=== PATIENT | female | born 1935 | race Caucasian/White ===

== ENCOUNTER → 2017-04-10 10:47 | Outpatient (CLI) | payer MEDICARE, OTHER, SELFPAY ==
[2017-04-10 11:05] LABS: Basophils # 0.1 K/mm3 (0-0.2); Basophils % 0.7 % (0.1-2.0); Eosinophils # 0.2 K/mm3 (0.0-0.4); Eosinophils % 1.1 % (0.1-12.0); Hematocrit 37.9 % (37.0-47.0); Hemoglobin 11.9 g/dL (12.2-16.2); Lymphocytes # 13.1 K/mm3 (0.7-4.5); Lymphocytes % 68.9 K/mm3 (10-50); Mean Corpuscular HGB Conc 31.4 g/dL (31.8-35.4); Mean Corpuscular Hemoglobin 29.5 pg (27.0-31.2); Mean Corpuscular Volume 94.1 fl (81-99); Mean Platelet Volume 8.8 fl (7.4-10.4); Monocytes # 0.4 K/mm3 (0.1-1.0); Monocytes % 2.1 % (1.7-9.3); Neutrophils # 5.2 K/mm3 (1.8-7.8); Neutrophils % 27.2 % (37.0-80.0); Platelet Count 232 K/mm3 (142-424); Red Blood Count 4.02 M/mm3 (4.20-5.40); Red Cell Distribution Width 14.8 % (11.5-17.5); White Blood Count 19.1 K/mm3 (4.8-10.8)
[2017-04-10 11:08] LABS: MANUAL DIFFERENTIAL MANUAL DIFFERENTIAL (MANUAL DIFF)
[2017-04-10 11:28] LABS: Alanine Aminotransferase 20 U/L (12-78); Albumin Level 3.9 gm/dL (3.4-5.0); Albumin/Globulin Ratio 1.2 (1.1-1.8); Alkaline Phosphatase 75 U/L (46-116); Anion Gap 13.8 mEq/L (5-15); Aspartate Amino Transferase 13 U/L (15-37); Bilirubin,Total 0.5 mg/dL (0.2-1.0); Blood Urea Nitrogen 37 mg/dL (7-18); Calcium 9.9 mg/dL (8.5-10.1); Carbon Dioxide 30 mmol/L (21.0-32.0); Chloride 103 mmol/L (98-107); Chol/HDL Ratio 2.4 (1-3.5); Cholesterol 212 mg/dL (140-200); Estimated Glomerular Filt Rate 7 ml/min (>60); GFR (African American) 8 ML/MIN (>60); Globulin 3.3 gm/dl (1.3-3.2); Glucose 102 mg/dL (74-106); HDL Cholesterol 89 mg/dL (29-89); LDL Cholesterol 101 mg/dL (0-130); Potassium 4.8 mmoL/L (3.5-5.1); Sodium 142 mmol/L (136-145); Thyroid Stimulating Hormone 2.37 uIU/ml (0.358-3.740); Total Protein,Serum 7.2 gm/dL (6.4-8.2); Triglycerides 108 mg/dL (30-200); VLDL Cholesterol 22 mg/dL (0-40)
[2017-04-10 12:17] LABS: Lymphocytes % 66 % (10-50); Monocytes % 3 % (2-9); Neutrophils % 31 % (42-76); Platelet Estimate Normal; Total Cells Counted 100
[2017-04-10 12:18] LABS: RBC Morphology Normal
== END ==
PROVIDERS: PCP Internal Medicine; Visit Provider Internal Medicine
DX: I10 Essential (primary) hypertension (principal); C91.10 Chronic lymphocytic leukemia of B-cell type not having achieved remission; E03.9 Hypothyroidism, unspecified; N18.6 End stage renal disease; Z99.2 Dependence on renal dialysis
CPT/HCPCS: 36415; 80053; 80061; 84443; 85007; 85025

== ENCOUNTER → 2017-05-22 07:33 | Outpatient (CLI) | payer MEDICARE, OTHER, SELFPAY ==
--- NOTE | 2017-05-22 07:39 | CT_ITS ---
CT abdomen pelvis wo con CLINICAL INDICATION: Left lower quadrant pain, history of diverticulitis ITS.REASON: LLQ PAIN ORDERING PHYSICIAN: Galen Stewart PATIENT AGE: 82 years COMPARISON: 08/10/2014 TECHNIQUE: Axial images obtained with sagittal and coronal reformats. PROCEDURE: Oral Contrast: None IV Contrast: None . FINDINGS: Lung base images show cardiomegaly with dense calcification of the mitral valve annulus. Fibrotic changes are present in the lung bases and there is ectasia of the lower thoracic aorta measuring up to 2.5 cm with dense calcification of the aorta. There has been a prior cholecystectomy. No ductal dilatation. The liver and spleen are unremarkable. No adrenal mass. No pancreatic mass apparent. There is a moderate amount retained colonic feces. There are multiple unopacified bowel loops present within the abdomen/pelvis which could obscure or mimic pathology. If symptoms persists, consider repeating exam with IV and oral contrast administration. There is been diverticulosis. No convincing evidence of diverticulitis. No evidence of appendicitis. Anastomosis is present in the colon in the left upper quadrant. A 12 mm isodensity is present in the upper pole the right kidney medially. Prominent extrarenal right renal pelvis. Bilateral renal cysts are present. No hydronephrosis. Prior hysterectomy. No obvious pelvic mass or abnormal fluid collection. No acute bony anomalies. IMPRESSION: 1. Overall no significant change with no acute finding. 2. Constipation with colonic diverticulosis and postsurgical changes. 3. There are multiple unopacified bowel loops present within the abdomen/pelvis which could obscure or mimic pathology. If symptoms persists, consider repeating exam with IV and oral contrast administration 4. Other nonacute findings as described above
== END ==
PROVIDERS: Family Provider Internal Medicine; PCP Internal Medicine; Visit Provider Internal Medicine
DX: R10.32 Left lower quadrant pain (principal)
CPT/HCPCS: 74176

== ENCOUNTER → 2017-06-14 14:05 | Outpatient (CLI) | payer MEDICARE, OTHER, SELFPAY ==
[2017-06-14 14:36] LABS: Troponin I < 0.02 ng/ml (0.00-0.06)
== END ==
PROVIDERS: Visit Provider Internal Medicine
DX: R06.00 Dyspnea, unspecified (principal); I12.0 Hypertensive chronic kidney disease with stage 5 chronic kidney disease or end stage renal disease
CPT/HCPCS: 36415; 84484; 93005

== ENCOUNTER → 2018-05-19 08:08 | Outpatient (CLI) | payer MEDICARE, OTHER, SELFPAY ==
--- NOTE | 2018-05-19 | CA_ITS ---
PROCEDURE: 2-D M-mode and color Doppler study INDICATIONS FOR THE TEST: Chest pain COPD Heart Murmur+ Tobacco Smoking Palpitations Fatigue Syncope Edema Hypertension+Diabetes Mellitus Rheumatic Fever SOB+F[place] Obesity Hyperlipidemia Family History HD Additional History CHF, A FLUTTER, ? + B/S PATIENT INFORMATION HEIGHT: 59 WEIGHT:100 GENDER: Female B/P:167/44 2-D/M-MODE INTERPRETATION: 2-D MEASUREMENTS OBSERVED VALUES IN CMS Right Ventricular Dimension (RVDd) 1.1 Interventricular Septum (Thickness)(IVsd) 1.4 Left Ventricular Internal Dimensions(LVIDd) 5.6 Left Ventricular Posterior Wall (Thickness)(LVPWd) 1.1 Aortic Root 2.1 Aortic Cusp Separation 1.1 Left Atrial Dimensions (LAD) 4.5 2D 1. Left atrium is markedly enlarged, left ventricle is normal size, moderate concentric left ventricular hypertrophy, visually estimated ejection fraction of 55-60% with no regional wall motion abnormality. 2. The right atrium and right ventricle are moderately enlarged with normal contractility. 3. The aortic valve is thickened and calcified without significant restriction the leaflet mobility. 4. The mitral valve has dense mitral calcification which extends and both anterior and posterior mitral leaflet. 5. The tricuspid valve leaflets are minimally thickened and 6. The pulmonic valve is poorly visualized. 5. No significant pericardial effusion noted. DOPPLER INTERROGATION: 1. The aortic outflow velocities mildly increased, does not represent significant aortic stenosis, there is mild aortic insufficiency. 2. The mitral inflow velocities increased to 2.4 m/s, resulting in a mean gradient across valve of 7 mmHg, calculated valve area by pressure half time is 1.7 sq cm, represents mild mitral stenosis, there is moderate to severe mitral regurgitation present. 3. There is moderate tricuspid regurgitation present, calculated right ventricular systolic pressure is 70 mmHg consistent with severe pulmonary hypertension. Diastolic parameters are inconclusive, inferior vena cava is mildly dilated without significant inspiratory collapse. 4. Agitated saline contrast study fails to identify intracardiac shunt. CONCLUSION: 1. Markedly enlarged left atrium, normal left ventricular size, moderate concentric left ventricular hypertrophy, visually estimated ejection fraction of 55-60% with no regional wall motion abnormality, diastolic parameters are inconclusive 2. Moderately enlarged right atrium and right ventricle, contractility of the right ventricle is normal. 3. Thickened
== END ==
PROVIDERS: PCP Internal Medicine; Visit Provider Internal Medicine Cardiovascular Disease
DX: I38 Endocarditis, valve unspecified (principal)
CPT/HCPCS: 93306

== ENCOUNTER → 2018-05-22 11:15 | Outpatient (CLI) | payer MEDICARE, OTHER, SELFPAY ==
--- NOTE | 2018-05-22 11:19 | XR_ITS ---
XR chest 2V HISTORY: ITS.REASON: on amiodarone therapy ORDERING PHYSICIAN: Jordan Acharya MD PATIENT AGE: 83 years COMPARISON: 01/04/2018 FINDINGS: There is mild cardiomegaly without failure. Biapical pleural thickening is noted. There is also mild pleural thickening in the CP angles. No pulmonary fibrosis apparent. . There is some increased density overlying the right lower lobe. This however had a similar appearance on 12/17/2017 and may be due to soft tissue attenuation. Diffuse calcification noted of the aorta. There is calcification of the mitral valve annulus. No acute bony findings. Minimal atelectatic changes or scarring noted in the left lung base unchanged IMPRESSION: No change with no acute finding. Cardiomegaly. No evidence of pulmonary fibrosis
[2018-05-22 13:08] LABS: Alanine Aminotransferase 23 U/L (12-78); Albumin Level 3.7 gm/dL (3.4-5.0); Alkaline Phosphatase 102 U/L (46-116); Aspartate Amino Transferase 15 U/L (15-37); Bilirubin,Direct 0.1 mg/dL (0.0-0.2); Bilirubin,Indirect 0.3 mg/dL (0.0-0.9); Bilirubin,Total 0.4 mg/dL (0.2-1.0); Free T4 (Free Thyroxine) 1.46 ng/dl (0.76-1.46); Free Thyroxine Index 4.9 ug/dL (5.93-13.13); T4 (Thyroxine) 12.9 ug/dl (4.7-13.3); Thyroid Stimulating Hormone 3.53 uIU/ml (0.358-3.740); Total Protein,Serum 6.3 gm/dL (6.4-8.2); Triiodothryronine (T3) Uptake 38 % (31-39)
== END ==
PROVIDERS: PCP Internal Medicine; Visit Provider Internal Medicine Cardiovascular Disease
DX: E03.9 Hypothyroidism, unspecified (principal); I07.1 Rheumatic tricuspid insufficiency; I10 Essential (primary) hypertension; I34.0 Nonrheumatic mitral (valve) insufficiency; N18.6 End stage renal disease; R00.1 Bradycardia, unspecified; R06.00 Dyspnea, unspecified; Z86.79 Personal history of other diseases of the circulatory system; Z99.2 Dependence on renal dialysis; I48.91 Unspecified atrial fibrillation
CPT/HCPCS: 36415; 71046; 80076; 84436; 84439; 84443; 84479

== ENCOUNTER → 2018-09-09 14:54 | Outpatient (CLI) | payer MEDICARE, OTHER, SELFPAY ==
[2018-09-09 15:05] LABS: Basophils # 0.1 K/mm3 (0-0.2); Basophils % 0.6 % (0.1-2.0); Eosinophils # 0.1 K/mm3 (0.0-0.4); Eosinophils % 1.3 % (0.1-12.0); Hematocrit 34.5 % (37.0-47.0); Hemoglobin 10.6 g/dL (12.2-16.2); Lymphocytes # 4.6 K/mm3 (0.7-4.5); Lymphocytes % 44.8 % (10-50); Mean Corpuscular HGB Conc 30.6 g/dL (31.8-35.4); Mean Corpuscular Hemoglobin 30.3 pg (27.0-31.2); Mean Corpuscular Volume 98.9 fl (81-99); Mean Platelet Volume 9.2 fl (7.4-10.4); Monocytes # 0.2 K/mm3 (0.1-1.0); Monocytes % 2.2 % (1.7-9.3); Neutrophils # 5.3 K/mm3 (1.8-7.8); Platelet Count 242 K/mm3 (142-424); Red Blood Count 3.49 M/mm3 (4.20-5.40); Red Cell Distribution Width 15.8 % (11.5-17.5); White Blood Count 10.3 K/mm3 (4.8-10.8)
== END ==
PROVIDERS: PCP Internal Medicine; Visit Provider Internal Medicine
DX: K62.5 Hemorrhage of anus and rectum (principal)
CPT/HCPCS: 85025

== ENCOUNTER → 2019-02-16 15:07 | Outpatient (CLI) | payer MEDICARE, OTHER, SELFPAY ==
[2019-02-16 15:17] LABS: Basophils # 0.1 K/mm3 (0-0.2); Basophils % 0.6 % (0.1-2.0); Eosinophils # 0.2 K/mm3 (0.0-0.4); Eosinophils % 2.1 % (0.1-12.0); Hematocrit 32.3 % (37.0-47.0); Hemoglobin 10.1 g/dL (12.2-16.2); Lymphocytes # 3.5 K/mm3 (0.7-4.5); Lymphocytes % 39.9 % (10-50); Mean Corpuscular HGB Conc 31.1 g/dL (31.8-35.4); Mean Corpuscular Hemoglobin 29.1 pg (27.0-31.2); Mean Corpuscular Volume 93.4 fl (81-99); Mean Platelet Volume 9.1 fl (7.4-10.4); Monocytes # 0.3 K/mm3 (0.1-1.0); Monocytes % 2.9 % (1.7-9.3); Neutrophils # 4.8 K/mm3 (1.8-7.8); Neutrophils % 54.4 % (37.0-80.0); Platelet Count 234 K/mm3 (142-424); Red Blood Count 3.46 M/mm3 (4.20-5.40); Red Cell Distribution Width 17.4 % (11.5-17.5); White Blood Count 8.8 K/mm3 (4.8-10.8)
[2019-02-16 15:46] LABS: Anion Gap 29.3 mEq/L (5-15); Calcium 8.4 mg/dL (8.5-10.1); Carbon Dioxide 17 mmol/L (21.0-32.0); Chloride 95 mmol/L (98-107); Estimated Glomerular Filt Rate 3 ml/min (>60); Free T4 (Free Thyroxine) 1.37 ng/dl (0.76-1.46); GFR (African American) 4 ML/MIN (>60); Glucose 106 mg/dL (74-106); Sodium 135 mmol/L (136-145); Thyroid Stimulating Hormone 4.02 uIU/ml (0.358-3.740)
[2019-02-16 15:55] LABS: Blood Urea Nitrogen 142 mg/dL (7-18); Potassium 6.3 mmoL/L (3.5-5.1)
[2019-02-17 09:25] LABS: Creatinine,Serum 12.15 mg/dL (0.55-1.02)
== END ==
PROVIDERS: Visit Provider Internal Medicine
DX: D64.9 Anemia, unspecified (principal); E03.9 Hypothyroidism, unspecified; C91.10 Chronic lymphocytic leukemia of B-cell type not having achieved remission; I73.9 Peripheral vascular disease, unspecified; G60.9 Hereditary and idiopathic neuropathy, unspecified; N18.6 End stage renal disease; E78.5 Hyperlipidemia, unspecified; Z99.2 Dependence on renal dialysis
CPT/HCPCS: 80048; 84439; 84443; 85025

== ENCOUNTER → 2019-06-25 13:37 | Outpatient (CLI) | payer MEDICARE, OTHER, SELFPAY ==
[2019-06-26 16:22] LABS: Covid-19 Nasal PCR Sendout Lex NOT DETECTED
--- NOTE | 2019-06-26 16:50 | PC.NURSE ---
1648 dr. rodrigez notified at this time of negative COVID-19 TEST 1650 PT NOTIFIED OF NEGATIVE COVID-19 TEST
== END ==
PROVIDERS: Visit Provider Internal Medicine
DX: Z03.818 Encounter for observation for suspected exposure to other biological agents ruled out (principal)

== ENCOUNTER → 2019-11-19 13:46 | Outpatient (CLI) | payer MEDICARE, OTHER, SELFPAY | PROVIDERS: Visit Provider Internal Medicine | DX: L03.116 Cellulitis of left lower limb (principal) | CPT/HCPCS: 87070; 87077; 87186; 87205 ==

== ENCOUNTER 2019-11-26 14:00 | Outpatient (RCR) | payer MEDICARE, OTHER, SELFPAY | END 2019-11-26 14:05 | disposition home or self-care (01) | LOC: PT 14:00 | PROVIDERS: PCP Internal Medicine; Visit Provider Internal Medicine | DX: L97.221 Non-pressure chronic ulcer of left calf limited to breakdown of skin (principal) | CPT/HCPCS: 29580; 97140; 97162; 97164; 97597; 97598 ==

== ENCOUNTER → 2019-12-09 13:04 | Outpatient (CLI) | payer MEDICARE, OTHER, SELFPAY ==
--- NOTE | 2019-12-09 13:06 | CA_ITS ---
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 10.00 (<2mmHg) MV PHT 50.00 ms Left Ventricle Left atrium is moderately enlarged, left ventricle is normal size, there is mild concentric left ventricular hypertrophy, visually estimated ejection fraction 55% with no regional wall motion abnormality, diastolic parameters are inconclusive. Right Ventricle Right atrium and right ventricle are moderately enlarged with normal contractility. Aortic Valve Aortic valve is thickened and calcified, with mild restriction in the leaflet mobility, the mean gradient across valve is 10 mmHg, there is mild aortic stenosis, there is mild aortic insufficiency. Mitral Valve Mitral valve leaflets are thickened and calcified, there is restriction in the leaflet mobility, the mean gradient across valve is 10 mmHg the valve area is not accurately calculated, there is at least moderate mitral stenosis, there is moderate to severe mitral regurgitation. Tricuspid Valve Tricuspid valve leaflets are minimally thickened, there is moderate tricuspid regurgitation, calculated right ventricular systolic pressure is 78 mmHg, inferior vena cava is dilated without significant inspiratory collapse. Pulmonic Valve Pulmonic valve is minimally thickened, there is no pulmonic stenosis, there is moderate pulmonic insufficiency. Great Vessels Aortic root is normal size. Pericardium Significant pericardial effusion noted. Conclusion 1. Biatrial enlargement, normal left ventricular size, moderate concentric left ventricular hypertrophy, visually estimated ejection fraction 55% with no regional wall motion abnormality, diastolic parameters are inconclusive. 2. Enlarged right ventricle with normal contractility. 3. Thickened and calcified aortic valve with mild aortic insufficiency, there is mild aortic stenosis. 4. Abnormal mitral valve as described above with at least moderate mitral stenosis and moderate to severe mitral regurgitation. 5. Moderate tricuspid regurgitation, calculated right ventricular systolic pressure is 78 mmHg, inferior vena cava is dilated without significant inspiratory collapse. 6. No significant pericardial effusion noted. Electronically signed by : Jordan Acharya, 12/10/2019 11:40:13
== END ==
PROVIDERS: PCP Internal Medicine; Visit Provider Internal Medicine
DX: E03.9 Hypothyroidism, unspecified (principal); I07.1 Rheumatic tricuspid insufficiency; I34.0 Nonrheumatic mitral (valve) insufficiency; I48.91 Unspecified atrial fibrillation; I48.92 Unspecified atrial flutter; I50.9 Heart failure, unspecified; N18.6 End stage renal disease; R00.1 Bradycardia, unspecified; R06.00 Dyspnea, unspecified; Z79.899 Other long term (current) drug therapy; Z86.79 Personal history of other diseases of the circulatory system; Z99.2 Dependence on renal dialysis; I11.0 Hypertensive heart disease with heart failure; I12.0 Hypertensive chronic kidney disease with stage 5 chronic kidney disease or end stage renal disease
CPT/HCPCS: 93306

== ENCOUNTER → 2019-12-11 07:05 | Outpatient (CLI) | payer MEDICARE, OTHER, SELFPAY ==
--- NOTE | 2019-12-11 07:14 | CT_ITS ---
PROCEDURE: CT CHEST WO CON CLINICAL INDICATION: dyspnea/amidoarone tox DYSPNEA AMIDOARONNE TOX,,,, PT. DIDNOT WANT TO REMOVE BRA COMPARISON: CT ABDPELW/O CT ABD PELVIS W/O CONTRAST from 12/28/[address] abdomen pelvis wo con from 07/17/2018 CR XR CHEST 2V from 06/16/2019 TECHNIQUE: Axial images obtained with sagittal and coronal reformats. All CT scans at the facility use one or more dose reduction, viz: automated exposure control, ma/kV adjustment per patient size (including targeted exams where dose is matched to indication, i.e. head), or iterative reconstruction technique. FINDINGS: This report is delayed waiting on high-resolution reformatted images submitted for interpretation on 12/16/2019. There is heterogeneous density of the thyroid gland with bilateral nodules the largest in the lower pole on the left at 15 mm which may be better evaluated with ultrasound if clinically warranted. There is diffuse calcification of the aorta. Severe coronary artery calcifications are present and there is also calcification of the mitral valve annulus. There are few scattered small mediastinal lymph nodes. There is cardiomegaly. No pericardial thickening. Is biapical scarring. No lobar consolidation or collapse is evident. No suspicious pulmonary nodules are evident. No effusions are apparent. There is some minimal septal thickening in the lung bases which is nonspecific. No honeycombing. Upper abdominal images demonstrates colonic diverticulosis, bilateral renal atrophy and an I so density of the left kidney at 16 mm incompletely imaged. There is diffuse vascular calcification. No acute bony findings. IMPRESSION: 1. Cardiomegaly with diffuse coronary artery calcification and diffuse calcification of the aorta. 2. There is some mild scarring in the lung apices with some minimal interstitial thickening in the lung bases. This is a nonspecific finding and could even in part be related to some atelectatic change. Follow-up is suggested. Cannot exclude the possibility of developing interstitial lung disease or early pulmonary fibrosis. Suggest 3 month follow-up with high-resolution chest CT with inspiration and expiration and with prone imaging.. 3. Indeterminate left renal nodule. This may be due to a cyst however the density is slightly greater than expected at 18 Hounsfield units. Ultrasound may determine cystic or solid nature. 4. 15 mm left thyroid nodule which may be better evaluated with ultrasound Dictated by: Shawn Goldsmith MD 12/16/2019 10:06 Shawn Goldsmith MD in [place] 12/16/2019 10:06
== END ==
PROVIDERS: PCP Internal Medicine; Visit Provider Internal Medicine
DX: E03.9 Hypothyroidism, unspecified (principal); I07.1 Rheumatic tricuspid insufficiency; I34.0 Nonrheumatic mitral (valve) insufficiency; I48.91 Unspecified atrial fibrillation; I48.92 Unspecified atrial flutter; I50.9 Heart failure, unspecified; N18.6 End stage renal disease; R00.1 Bradycardia, unspecified; Z79.899 Other long term (current) drug therapy; R06.00 Dyspnea, unspecified; Z86.79 Personal history of other diseases of the circulatory system; Z99.2 Dependence on renal dialysis; I12.0 Hypertensive chronic kidney disease with stage 5 chronic kidney disease or end stage renal disease
CPT/HCPCS: 71250

== ENCOUNTER 2020-01-15 12:15 | Emergency (ER) | payer MEDICARE, OTHER, SELFPAY ==
[2020-01-15 12:20] VITALS: BP 181/57; PULSE 71; RESP 19; TEMP 36.6; O2SAT 99; BMI 19.3
--- NOTE | 2020-01-15 12:27 | XR_ITS ---
PROCEDURE: XR HIP LT 2-3V W/PELVIS CLINICAL INDICATION: PAIN COMPARISON: No exams were available for comparison FINDINGS: No fracture or dislocation. No lytic or blastic change. Minimal osteoarthritis. There is generalized vascular calcification. Surgical clips are present in the lower pelvis centrally. IMPRESSION: No acute findings. Dictated by: Shawn Goldsmith MD 01/15/2020 13:52 Shawn Goldsmith MD in [place] 01/15/2020 13:52
--- NOTE | 2020-01-15 13:06 | HMH.EDUTC ---
[facility] [place] Impression: Left hip pain, ESRD (end stage renal disease) Leg ulcer Qualifiers: Laterality: unspecified laterality Non-pressure ulcer stage: unspecified non-pressure ulcer stage Qualified Code(s): L97.909 - Non-pressure chronic ulcer of unspecified part of unspecified lower leg with unspecified severity Disposition: Home, Self-Care Condition on Discharge: Good Instructions: DI for Hip Pain Additional Instructions: Follow up with your primary care doctor. Follow up with your kidney doctor. I put in a referral to an orthopedics doctor (Dr. Ruiz). Please call his office and make yourself an appointment to get your hip rechecked. GO TO THE ER FOR ANY WORSENING SYMPTOMS OR CONCERNS Referrals: Galen Stewart [Primary Care Provider] - Stuart Ruiz MD [Staff Physician] - Time of Disposition: 13:30 Medical Decision Making - Medical Records Medical records reviewed: No: I reviewed the patient's medical records. - Luis Enrique Inquiry Pt receiving controlled substance: No Vital Signs: 01/15/20 12:20 01/15/20 13:30 Temperature 97.9 F 97.9 F Temperature Source Oral Pulse Rate 71 Pulse Rate [Left Brachial] 71 Respiratory Rate 19 19 Blood Pressure 181/57 H Blood Pressure [Left Arm] 181/57 H Blood Pressure Mean [Left Arm] 98 Blood Pressure Source [Left Arm] Automatic Cuff Blood Pressure Position [Left Arm] Sitting 02 Sat by Pulse Oximetry 99 Oxygen Delivery Method Room Air - Radiology Data #1 Image(s): Hip Image Reviewed: Yes I reviewed the patient's radiology image, Yes I have reviewed radiologist's interpretation Preliminary Findings: Normal/NAD, No Fracture Seen PROCEDURE: XR HIP LT 2-3V W/PELVIS CLINICAL INDICATION: PAIN COMPARISON: No exams were available for comparison FINDINGS: No fracture or dislocation. No lytic or blastic change. Minimal osteoarthritis. There is generalized vascular calcification. Surgical clips are present in the lower pelvis centrally. IMPRESSION: No acute findings. Dictated by: Shawn Goldsmith MD 01/15/2020 13:52 Shawn Goldsmith MD in [place] 01/15/2020 13:52 [facility] [place] - General Stated complaint: Lt Hip pain no Ao Time Seen by Provider: 01/15/20 12:30 Mode of Arrival: Ambulatory Source of Information: Patient Limitations: No Limitations Description of Symptoms (Recalled from Triage Doc. by RN): PATIENT C/O LEFT HIP PAIN FOR APPROX 2 WEEKS. SHE STATES SHE ALMOST FELL AND THINKS SHE MAY HAVE PULLED SOMETHING. ALSO C/O SORES TO LLE. PATIENT IS ON DIALYSIS HEENT Symptoms (Recalled from RN notes): No Resp Symptoms (Recalled from RN notes): No Skin Symptoms (Recalled from RN notes): No MS Symptoms (Recalled from RN notes): Yes Functional Status (Recalled from RN notes): WNL - History of Present Illness Provider Complaint: She states that approx 2 weeks go she almost fell. When she was trying to catch herself, she started having pain in her left hip. This pain has continued. It is worse when she is sitting. She has to sit at her dialysis treatments for 4 hours at a time. She states that today she was unable to complete her treatment due to her hip pain. - Related Data Home Medications Medication Instructions Recorded Confirmed cholecalciferol (vitamin D3) 50 2,000 unit PO DAILY 12/19/17 12/09/19 mcg (2,000 unit) capsule aspirin 81 mg tablet,delayed 81 mg PO DAILY PRN 12/09/19 12/09/19 release calcium acetate(phosphat bind) 667 667 mg PO BID cap 12/09/19 12/09/19 mg capsule metoprolol succinate 50 mg 50 mg PO DAILY 12/09/19 12/09/19 tablet,extended release 24 hr ropinirole 1 mg tablet 2 mg PO DAILY tab 12/09/19 12/09/19 levothyroxine 50 mcg tablet 200 mcg PO DAILY tab 12/16/19 multivitamin 1 tab PO DAILY 12/16/19 12/16/19 valsartan 160 mg tablet 160 mg PO BID 12/16/19 12/16/19 Previous Rx's Medication Instructions Recorded torsemide 100 mg tablet 100 mg PO DAILY #30 tab 12/09/19
[2020-01-15 13:30] VITALS: BP 181/57; PULSE 71; RESP 19; TEMP 36.6; O2SAT 99
== END 2020-01-15 13:35 | disposition home or self-care (01) ==
PROVIDERS: Emergency Provider Nurse Practitioner Family; PCP Internal Medicine
DX: M25.552 Pain in left hip (principal); N18.6 End stage renal disease; L97.909 Non-pressure chronic ulcer of unspecified part of unspecified lower leg with unspecified severity; Z99.2 Dependence on renal dialysis; Z79.899 Other long term (current) drug therapy; Z88.1 Allergy status to other antibiotic agents; Z88.6 Allergy status to analgesic agent; I48.91 Unspecified atrial fibrillation; I12.0 Hypertensive chronic kidney disease with stage 5 chronic kidney disease or end stage renal disease; E78.5 Hyperlipidemia, unspecified
CPT/HCPCS: 73502; 99201

== ENCOUNTER → 2020-01-19 07:45 | Outpatient (CLI) | payer MEDICARE, OTHER, SELFPAY ==
--- NOTE | 2020-01-19 07:50 | CT_ITS ---
PROCEDURE: CT HIP LT WO CON CLINICAL HISTORY: PAIN follow-up Pain COMPARISON: CR XR CHEST 2V from 06/16/2019 CR XR HIP LT 2-3V W/PELVIS from 01/15/2020 TECHNIQUE: Axial images obtained with sagittal and coronal reformats. All CT scans at the facility use one or more dose reduction, viz: automated exposure control, ma/kV adjustment per patient size (including targeted exams where dose is matched to indication, i.e. head), or iterative reconstruction technique. FINDINGS: There is generalized osteopenia. There are mild osteoarthritic changes of the left hip. No displaced fracture is evident. No lytic or blastic lesion. There is generalized vascular calcification. There is a faint area of cortical irregularity involving the subcapital region of the femoral neck superiorly on the reformatted images. A nondisplaced fracture is not excluded. If pain persists, consider MRI for further evaluation and confirmation. IMPRESSION: Osteopenia with mild osteoarthritic change. No displaced fracture. Cannot exclude a nondisplaced buckling of the cortex in the subcapital region superiorly. Consider MRI for more thorough evaluation Dictated by: Shawn Goldsmith MD 01/19/2020 08:31 Shawn Goldsmith MD in [place] 01/19/2020 08:31
--- NOTE | 2020-01-19 10:47 | MR_ITS ---
PROCEDURE: MR HIP LT WO CON CLINICAL INDICATION: LEFT HIP PAIN Fall with injury and pain, abnormal CT scan COMPARISON: No exams were available for comparison TECHNIQUE: Routine multiplanar multi echo sequences are performed without gadolinium enhancement. FINDINGS: No fracture or dislocation. No abnormal bone marrow signal intensity within the left hip that would indicate a nondisplaced hairline fracture. There are mild osteoarthritic changes and there is a small left hip joint effusion. IMPRESSION: No acute fracture. Mild osteoarthritis with small left hip joint effusion. Dictated by: Shawn Goldsmith MD 01/19/2020 12:11 Shawn Goldsmith MD in [place] 01/19/2020 12:11
== END ==
PROVIDERS: PCP Internal Medicine; Visit Provider Internal Medicine
DX: M25.552 Pain in left hip (principal)
CPT/HCPCS: 73700; 73721

== ENCOUNTER 2020-04-30 09:20 | Emergency (ER) | payer MEDICARE, OTHER, SELFPAY ==
[2020-04-30 09:30] VITALS: BP 189/71; PULSE 95; RESP 20; O2SAT 96; BMI 20.2
--- NOTE | 2020-04-30 09:40 | PC.NURSE ---
PATIENT SENT TO ER PER ELADIO MERRILL APRN AND AT REQUEST OF NEPHROLOGY OFFICE DUE TO ELEVATED POTASSIUM. REPORT GIVEN TO Bacilio MICHAEL RN AND Rhoda GARCIA RN
[2020-04-30 09:47] VITALS: BP 147/76; PULSE 82; RESP 18; TEMP 36.4; O2SAT 98; BMI 13.9
--- NOTE | 2020-04-30 09:55 | HMH.EDUTC ---
[facility] [place] Clinical Impression: Abnormal laboratory test result Disposition: Still a Patient Condition on Discharge: Fair Referrals: Galen Stewart [Primary Care Provider] - Time of Disposition: 10:03 Medical Decision Making - Luis Enrique Inquiry Pt receiving controlled substance: No Luis Enrique was queried for this patient: No Vital Signs: 04/30/20 09:30 Pulse Rate [Right Brachial] 95 H Respiratory Rate 20 Blood Pressure [Right Arm] 189/71 H Blood Pressure Mean [Right Arm] 110 Blood Pressure Source [Right Arm] Automatic Cuff Blood Pressure Position [Right Arm] Sitting 02 Sat by Pulse Oximetry 96 Oxygen Delivery Method Room Air Medical Decision Narrative: Spoke to staff at [facility] and they advised that patient was told to go to the nearest ER and wanted her seen in the ER not in the [facility] Explained to patient that her VIDEO INTERN wanted her seen in the ED and she agreed to transfer Called ED and spoke with Nadine and patient was transferred to Room 7 [facility] [place] HPI - General Stated complaint: possible potassium level too high Time Seen by Provider: 04/30/20 09:55 Mode of Arrival: Ambulatory Source of Information: Patient Limitations: No Limitations Description of Symptoms (Recalled from Triage Doc. 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 SHE STATES HER LAST DIALYSIS APPOINTMENT WAS THURSDAY 04/27 AND HER BLOOD WAS DRAWN THAT DAY. SHE REPORTS SHE USUALLY GOES TO DIALYSIS TWICE A WEEK, BUT SHE WAS DELAYED A WEEK DUE TO WEATHER. 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 States that she has dialysis twice a week and due to bad weather she is behind on her treatments States that she had her blood drawn on Sat and called her with the results this morning telling her she needed to come in - Related Data Home Medications Medication Instructions Recorded Confirmed cholecalciferol (vitamin D3) 50 2,000 unit PO DAILY 12/19/17 12/09/19 mcg (2,000 unit) capsule aspirin 81 mg tablet,delayed 81 mg PO DAILY PRN 12/09/19 12/09/19 release calcium acetate(phosphat bind) 667 667 mg PO BID cap 12/09/19 12/09/19 mg capsule metoprolol succinate 50 mg 50 mg PO DAILY 12/09/19 12/09/19 tablet,extended release 24 hr ropinirole 1 mg tablet 2 mg PO DAILY tab 12/09/19 12/09/19 levothyroxine 50 mcg tablet 200 mcg PO DAILY tab 12/16/19 multivitamin 1 tab PO DAILY 12/16/19 12/16/19 valsartan 160 mg tablet 160 mg PO BID 12/16/19 12/16/19 Previous Rx's Medication Instructions Recorded torsemide 100 mg tablet 100 mg PO DAILY #30 tab 12/09/19 amlodipine 10 mg tablet 10 mg PO DAILY #30 tab 12/16/19 prednisone 20 mg tablet 20 mg PO DAILY #30 tab 12/16/19 Allergies Allergy/AdvReac Type Severity Reaction Status Date / Time codeine Allergy Intermediate NA-NAUSEA/V Verified 12/21/19 11:27 OMITING erythromycin base Allergy Unknown NAUSEA/VOMI Verified 12/21/19 11:27 TING - Worker's Comp Is this a Worker's Comp case?: No [facility] History - Hepatitis A Screen Drug use history?: No High risk sexual behaviors?: No History of sexually transmitted infection?: No Currently employed?: No Childcare worker?: No Do you have indoor plumbing?: Yes Do you have electricity?: Yes Attestation statement:: This patient has been screened for Hepatitis A risk factors. I have reviewed the patient's past medical history: Yes Medical History: Reports:: Atrial Fibrillation
[2020-04-30 10:36] LABS: Basophils # 0.1 K/mm3 (0-0.2); Basophils % 0.8 % (0.1-2.0); Eosinophils # 0.2 K/mm3 (0.0-0.4); Eosinophils % 3.1 % (0.1-12.0); Hematocrit 31.5 % (37.0-47.0); Lymphocytes # 2.2 K/mm3 (0.7-4.5); Lymphocytes % 33.6 % (10-50); Mean Corpuscular HGB Conc 31.8 g/dL (31.8-35.4); Mean Corpuscular Volume 97.3 fl (81-99); Mean Platelet Volume 9.1 fl (7.4-10.4); Monocytes # 0.2 K/mm3 (0.1-1.0); Monocytes % 2.6 % (1.7-9.3); Neutrophils # 3.9 K/mm3 (1.8-7.8); Neutrophils % 59.8 % (37.0-80.0); Platelet Count 190 K/mm3 (142-424); Red Blood Count 3.24 M/mm3 (4.20-5.40); Red Cell Distribution Width 15.3 % (11.5-17.5); White Blood Count 6.5 K/mm3 (4.8-10.8)
[2020-04-30 10:38] LABS: Chloride 100 mmol/L (98-107)
[2020-04-30 10:39] LABS: Potassium 4.4 mmoL/L (3.5-5.1); Sodium 138 mmol/L (136-145)
--- NOTE | 2020-04-30 10:39 | ECG_ITS ---
APPROVED REPORT Exam: Resting ECG HR:79 bpm ECG Measurements Heart Rate 79 AXES QRSd 88 QRS 105 QT 392 T 193 QTc 449 Conclusion Atrial fibrillation Rightward axis Septal infarct, age undetermined ST & T wave abnormality, consider lateral ischemia or digitalis effect Abnormal ECG Electronically signed by : Primitivo Vila, 05/04/2020 17:47:38
[2020-04-30 10:41] LABS: Creatinine Clearance Estimated 4 mL/min (50-200); Estimated Glomerular Filt Rate 4 ml/min (>60); GFR (African American) 5 ML/MIN (>60)
[2020-04-30 10:42] LABS: Anion Gap 14.4 mEq/L (5-15); Calcium 9.8 mg/dl (8.4-10.2); Carbon Dioxide 28 mmol/L (22.0-30.0); Glucose 104 mg/dl (74-100)
[2020-04-30 10:45] LABS: Blood Urea Nitrogen 81 mg/dl (7-17)
[2020-04-30 10:48] VITALS: BP 160/68; PULSE 77; O2SAT 96
--- NOTE | 2020-04-30 10:52 | HMH.EDGENADL ---
ED Disposition Clinical Impression: Abnormal laboratory test result Disposition: Home, Self-Care Condition on Discharge: Good Referrals: Galen Stewart [Primary Care Provider] - - Critical Care Critical Care Time: No Attestation: On 04/30/20, the high probability of a clinically significant, sudden or life threatening deterioration of the following system(s) required my full and direct attention, intervention and personal management. The time I documented below is in addition to time spent performing reported procedures but includes the following listed in this critical care notation. Medical Decision Making - Medical Records Medical records reviewed: Yes: I reviewed the patient's medical records. - Luis Enrique Inquiry Pt receiving controlled substance: No Vital Signs: 04/30/20 09:30 04/30/20 09:47 04/30/20 10:48 Temperature 97.5 F L Temperature Source Oral Pulse Rate [Right Brachial] 95 H Pulse Rate [Right Radial] 82 77 Respiratory Rate 20 18 Blood Pressure [Left Arm] 147/76 H 160/68 H Blood Pressure [Right Arm] 189/71 H Blood Pressure Mean [Left Arm] 99 98 Blood Pressure Mean [Right Arm] 110 Blood Pressure Source [Left Arm] Automatic Cuff Automatic Cuff Blood Pressure Source [Right Arm] Automatic Cuff Blood Pressure Position [Left Arm] Sitting Sitting Blood Pressure Position [Right Arm] Sitting 02 Sat by Pulse Oximetry 96 98 96 Oxygen Delivery Method Room Air Room Air Room Air - Lab Data Lab Results 04/30/20 10:25: WBC 6.5, RBC 3.24 L, Hgb 10.0 L, Hct 31.5 L, MCV 97.3, MCH 31.0, MCHC 31.8, RDW 15.3, Plt Count 190, MPV 9.1, Neut % (Auto) 59.8, Lymph % (Auto) 33.6, [place] % (Auto) 2.6, Eos % (Auto) 3.1, Baso % (Auto) 0.8, Neut # (Auto) 3.9, Lymph # (Auto) 2.2, [place] # (Auto) 0.2, Eos # (Auto) 0.2, Baso # (Auto) 0.1 04/30/20 10:25: Sodium 138, Potassium 4.4, Chloride 100, Carbon Dioxide 28, Anion Gap 14.4, BUN 81 H, Creatinine 8.60 H, Estimated Creat Clear 4, Estimated GFR 4 L*, Est GFR ( Amer) 5 L*, Glucose 104 H, Calcium 9.8 Result diagrams: 04/30/20 10:25 04/30/20 10:25 - ECG Data Tracing #1 No ventricular rate of 79 bpm, atrial fibrillation, rightward axis, nonspecific ST changes. ECG initial impression date: 04/30/20 ECG initial impression time: 10:41 - Reevaluation(s) Time: 10:58 Reevaluation #1: On reevaluation, patient remains asymptomatic. Potassium was found to be normal. BUN and creatinine are at the patient's baseline. She is scheduled for routine dialysis 48 hours. I did explain to the patient to maintain this appointment. She was given strict return precautions. Verbalized understanding. Medical Decision Narrative: 85-year-old female sent to the emergency department for abnormal laboratory studies. Patient asymptomatic. Work-up initiated. General Adult HPI - General Chief complaint: Recheck/Abnormal Lab/Rx Stated complaint: possible potassium level too high Time Seen by Provider: 04/30/20 09:55 Mode of Arrival: Ambulatory Source of Information: Patient Limitations: No Limitations Description of Symptoms (Recalled from ER Triage Doc. 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 SHE STATES HER LAST DIALYSIS APPOINTMENT WAS THURSDAY 04/27 AND HER BLOOD WAS DRAWN THAT DAY. SHE REPORTS SHE USUALLY GOES TO DIALYSIS TWICE A WEEK, BUT SHE WAS DELAYED A WEEK DUE TO WEATHER. - History of Present Illness HPI narrative: 85-year-old female presented to the emergency department for medical evaluation. Patient has a longstanding history of end-stage renal disease on hemodialysis. Patient normally goes Saturday and Saturday. She did miss her Saturday appointment last week due to weather, however she was dialyzed on Saturday without any complications. They did draw a routine laboratories at that time. Patient was notified that her potassium was elevated and to report to the
[2020-04-30 11:00] VITALS: BP 149/68; PULSE 93; O2SAT 98
[2020-04-30 11:15] VITALS: BP 149/68; PULSE 80; RESP 18; TEMP 36.4; O2SAT 96
== END 2020-04-30 11:15 | disposition home or self-care (01) ==
LOC: UTC 09:24 → ER 09:44
PROVIDERS: Emergency Provider Emergency Medicine; PCP Internal Medicine
DX: E87.5 Hyperkalemia (principal); N18.6 End stage renal disease; Z99.2 Dependence on renal dialysis; E78.5 Hyperlipidemia, unspecified; I10 Essential (primary) hypertension; I48.91 Unspecified atrial fibrillation; E03.9 Hypothyroidism, unspecified; Z79.899 Other long term (current) drug therapy
CPT/HCPCS: 80048; 85025; 93005; 99283

== ENCOUNTER 2020-05-11 10:45 | Emergency (ER) | payer MEDICARE, OTHER, SELFPAY ==
[2020-05-11] VITALS (10 sets, daily range): BP systolic 133–177; BP diastolic 71–88; PULSE 76–101; RESP 17–20; TEMP 36.9; O2SAT 98–100; BMI 19.1
--- NOTE | 2020-05-11 10:55 | HMH.EDGENADL ---
ED Disposition Clinical Impression: Pharyngeal edema, Hypoxia Disposition: Xfer Short-Term Hosp Condition on Discharge: Fair Instructions: DI for Altered Mental Status Referrals: Galen Stewart [Primary Care Provider] - Forms: Work/School Release - Critical Care Critical Care Time: No Attestation: On 05/11/20, the high probability of a clinically significant, sudden or life threatening deterioration of the following system(s) required my full and direct attention, intervention and personal management. The time I documented below is in addition to time spent performing reported procedures but includes the following listed in this critical care notation. Medical Decision Making - Medical Records Medical records reviewed: Yes: I reviewed the patient's medical records. - Luis Enrique Inquiry Pt receiving controlled substance: No Vital Signs: 05/11/20 10:47 05/11/20 11:17 05/11/20 11:30 Temperature 98.4 F Temperature Source Oral Pulse Rate [Right] 77 76 101 H Respiratory Rate 18 18 18 Blood Pressure [Right Arm] 133/71 155/81 H 177/81 H Blood Pressure Mean [Right Arm] 91 105 113 Blood Pressure Position [Right Arm] Supine 02 Sat by Pulse Oximetry 98 98 98 Oxygen Delivery Method Nasal Cannula Nasal Cannula Nasal Cannula Oxygen Flow Rate (LPM) 3 2 2 05/11/20 12:00 05/11/20 12:30 05/11/20 13:00 Temperature Temperature Source Pulse Rate [Right] 98 H 100 H 97 H Respiratory Rate 20 20 18 Blood Pressure [Right Arm] 165/81 H 171/83 H 171/81 H Blood Pressure Mean [Right Arm] 109 112 111 Blood Pressure Position [Right Arm] 02 Sat by Pulse Oximetry 100 98 98 Oxygen Delivery Method Nasal Cannula Simple Mask Nasal Cannula Oxygen Flow Rate (LPM) 2 2 2 05/11/20 13:30 Temperature Temperature Source Pulse Rate [Right] 101 H Respiratory Rate 20 Blood Pressure [Right Arm] 174/88 H Blood Pressure Mean [Right Arm] 116 Blood Pressure Position [Right Arm] 02 Sat by Pulse Oximetry 99 Oxygen Delivery Method Nasal Cannula Oxygen Flow Rate (LPM) 2 - Lab Data Lab Results 05/11/20 11:03: Chlamy pneumoniae PCR Not detected, Adenovirus (PCR) Not detected, B. pertussis DNA (PCR) Not detected, Coronavirus OC43 (PCR) Not detected, Coronavirus HKU1 (PCR) Not detected, Coronavirus 229E (PCR) Not detected, SARS-CoV-2 (PCR) Not detected, Coronavirus NL63 (PCR) Not detected, Human Metapneumovir PCR Not detected, Influenza A (H1) PCR Not detected, Influ A (H1N1/09) PCR Not detected, Influenza A (H3) PCR Not detected, Influenza Type A (PCR) Not detected, Influenza Type B (PCR) Not detected, M. pneumoniae (PCR) Not detected, Parainfluenza 1 (PCR) Not detected, Parainfluenza 2 (PCR) Not detected, Parainfluenza 3 (PCR) Not detected, Parainfluenza 4 (PCR) Not detected, RSV (PCR) Not detected, Entero/Rhino (PCR) Not detected 05/11/20 11:17: WBC 6.7, RBC 3.77 L, Hgb 11.5 L, Hct 36.5 L, MCV 96.7, MCH 30.6, MCHC 31.6 L, RDW 14.8, Plt Count 231, MPV 9.3, Neut % (Auto) 68.2, Lymph % (Auto) 25.5, [place] % (Auto) 4.8, Eos % (Auto) 0.7, Baso % (Auto) 0.9, Neut # (Auto) 4.6, Lymph # (Auto) 1.7, [place] # (Auto) 0.3, Eos # (Auto) 0.1, Baso # (Auto) 0.1 05/11/20 11:50: Sodium 132 L, Potassium 5.3 H, Chloride 93 L, Carbon Dioxide 25, Anion Gap 19.3 H, BUN 64 H, Creatinine 8.40 H, Estimated Creat Clear 4, Estimated GFR 5 L*, Est GFR ( Amer) 5 L*, Glucose 116 H, Calcium 9.2, Total Bilirubin 1.0, AST 39 H, ALT 28, Alkaline Phosphatase 124, C-Reactive Protein 75.8 H, Total Protein 6.1 L, Albumin 3.7, Globulin 2.4, Albumin/Globulin Ratio 1.5 05/11/20 11:50: Lactate 1.5 05/11/20 11:50: Troponin I 0.16 H, Lipase 144 05/11/20 13:30: Urine Color Yellow, Urine Appearance Clear, Urine pH 7.0, Ur Specific [place] 1.015, Urine Protein 2+, Urine Glucose (UA) Negative, Urine Ketones Negative, Urine Blood Trace-i, Urine Nitrate Negative, Urine Bilirubin Negative, Urine Urobilinogen 0.2, Ur Leukocyte Esterase Negative, Urine RBC 3-5, Urine WBC Occasional, Ur Squamous Ep
--- NOTE | 2020-05-11 11:15 | CT_ITS ---
PROCEDURE: CT HEAD/BRAIN WO CON CLINICAL INDICATION: ALTERED MENTAL STATUS Altered mental status, altered level of consciousness, confusion, disorientation COMPARISON: No exams were available for comparison TECHNIQUE: Axial images obtained. All CT scans at the facility use one or more dose reduction, viz: automated exposure control, ma/kV adjustment per patient size (including targeted exams where dose is matched to indication, i.e. head), or iterative reconstruction technique. FINDINGS: No midline shift, mass effect, intracranial hemorrhage, hydrocephalus, or extra-axial fluid collection is evident. There is generalized atrophy with hypoattenuation of the periventricular white matter consistent with microangiopathic changes. The calvarium has an unremarkable appearance. No mastoid effusion. No sinus air-fluid level. IMPRESSION: No acute intracranial finding Dictated by: Shawn Goldsmith MD 05/11/2020 15:39 Shawn Goldsmith MD in [facility] 05/11/2020 15:39
--- NOTE | 2020-05-11 11:15 | XR_ITS ---
PROCEDURE: XR CHEST PORTABLE CLINICAL HISTORY: HYPOXIA COMPARISON: No exams were available for comparison FINDINGS: There is cardiomegaly without failure. Bandlike area of increased density is present in the left lower lobe consistent with atelectasis or infiltrate with small left effusion. There is a small right effusion. There is diffuse calcification of the thoracic aorta. No acute bony findings. Surgical clips are present in the right neck. IMPRESSION: Left lower lobe atelectasis or infiltrate with small bilateral effusions Dictated by: Shawn Goldsmith MD 05/11/2020 15:50 Shawn Goldsmith MD in [facility] 05/11/2020 15:50
[2020-05-11 11:25] LABS: Adenovirus,PCR Not Detected (NotDetected); Bordetella Pertussis Not Detected (NotDetected); Chlamydophila Pneumoniae, PCR Not Detected (NotDetected); Coronavirus 19, PCR Not Detected (NotDetected); Coronavirus 229E Not Detected (NotDetected); Coronavirus NL63 Not Detected (NotDetected); Coronavirus OC43 Not Detected (NotDetected); Coronovirus HKU1,PCR Not Detected (NotDetected); Human Metapneumovirus Not Detected (NotDetected); Influenza A, PCR Not Detected (NotDetected); Influenza AH1, 2009 Not Detected (NotDetected); Influenza AH1, PCR Not Detected (NotDetected); Influenza AH3,PCR Not Detected (NotDetected); Influenza B, PCR Not Detected (NotDetected); Mycoplasma Pneumoniae, PCR Not Detected (NotDetected); Parainfluenza 1, PCR Not Detected (NotDetected); Parainfluenza 2, PCR Not Detected (NotDetected); Parainfluenza 3, PCR Not Detected (NotDetected); Parainfluenza 4, PCR Not Detected (NotDetected); Respiratory Syncytial Virus Not Detected (NotDetected); Rhinovirus/Enterovirus Not Detected (NotDetected)
[2020-05-11 11:37] LABS: Basophils # 0.1 K/mm3 (0-0.2); Basophils % 0.9 % (0.1-2.0); Eosinophils # 0.1 K/mm3 (0.0-0.4); Eosinophils % 0.7 % (0.1-12.0); Hematocrit 36.5 % (37.0-47.0); Hemoglobin 11.5 g/dL (12.2-16.2); Lymphocytes # 1.7 K/mm3 (0.7-4.5); Lymphocytes % 25.5 % (10-50); Mean Corpuscular HGB Conc 31.6 g/dL (31.8-35.4); Mean Corpuscular Hemoglobin 30.6 pg (27.0-31.2); Mean Corpuscular Volume 96.7 fl (81-99); Mean Platelet Volume 9.3 fl (7.4-10.4); Monocytes # 0.3 K/mm3 (0.1-1.0); Monocytes % 4.8 % (1.7-9.3); Neutrophils # 4.6 K/mm3 (1.8-7.8); Neutrophils % 68.2 % (37.0-80.0); Platelet Count 231 K/mm3 (142-424); Red Blood Count 3.77 M/mm3 (4.20-5.40); Red Cell Distribution Width 14.8 % (11.5-17.5); White Blood Count 6.7 K/mm3 (4.8-10.8)
--- NOTE | 2020-05-11 11:37 | ECG_ITS ---
APPROVED REPORT Exam: Resting ECG HR:97 bpm ECG Measurements Heart Rate 97 AXES QRSd 184 QRS 94 QT 388 T 260 QTc 492 Conclusion Atrial fibrillation Rightward axis Nonspecific intraventricular block Abnormal ECG Electronically signed by : Primitivo Vila, 05/12/2020 10:06:08
--- NOTE | 2020-05-11 11:42 | CT_ITS ---
PROCEDURE: CT SOFT TISSUE NECK W CON CLINICAL HISTORY: strep pharyngitis on abx with increased pain Throat pain COMPARISON: No exams were available for comparison TECHNIQUE: Oral Contrast: None IV Contrast: None Axial images obtained with sagittal and coronal reformats. All CT scans at the facility use one or more dose reduction, viz: automated exposure control, ma/kV adjustment per patient size (including targeted exams where dose is matched to indication, i.e. head), or iterative reconstruction technique. FINDINGS: There is extensive edema within the pharyngeal mucosal space left greater than right. The epiglottis is mildly prominent on the left. There is thickening of the left area epiglottic fold with obliteration of the left vallecula as well as the left piriform sinus. The vocal folds appear thickened. There is severe edema of the uvula and parapharyngeal soft tissue superiorly in the oral pharyngeal region. Small amount fluid is present within the parapharyngeal mucosal space. There is prominence of the lingual and palatine tonsils. There is asymmetric enhancement of the submandibular gland left greater than right. There is mild generalized edema of the subcutaneous tissues in the lower neck. Biapical fibronodular changes are present. There are bilateral pleural effusions left larger than right. There are bilateral thyroid hypodense lesions largest on the left at 10 mm. The there is extensive calcification of the aortic arch IMPRESSION: Severe inflammatory changes of the parapharyngeal soft tissues, uvula, supraglottic region, and glottis. Also suspect mild epiglottitis. Please see above for detail. No obvious parapharyngeal abscess. Suggest direct visualization for further evaluation. Bilateral effusions Dictated by: Shawn Goldsmith MD 05/11/2020 15:49 Shawn Goldsmith MD in [facility] 05/11/2020 15:49
[2020-05-11 12:27] LABS: Alanine Aminotransferase 28 U/L (12-78); Albumin Level 3.7 g/dl (3.5-5.0); Albumin/Globulin Ratio 1.5 (1.1-1.8); Alkaline Phosphatase 124 U/L (38-126); Anion Gap 19.3 mEq/L (5-15); Aspartate Amino Transferase 39 U/L (14-36); Blood Urea Nitrogen 64 mg/dl (7-17); Calcium 9.2 mg/dl (8.4-10.2); Carbon Dioxide 25 mmol/L (22.0-30.0); Chloride 93 mmol/L (98-107); Creatinine Clearance Estimated 4 mL/min (50-200); Estimated Glomerular Filt Rate 5 ml/min (>60); GFR (African American) 5 ML/MIN (>60); Globulin 2.4 g/dL (1.3-3.2); Glucose 116 mg/dl (74-100); Potassium 5.3 mmoL/L (3.5-5.1); Sodium 132 mmol/L (136-145); Total Protein,Serum 6.1 g/dl (6.3-8.2)
[2020-05-11 12:29] LABS: Lactic Acid 1.5 mmol/L (0.7-2.1)
--- NOTE | 2020-05-11 12:30 | PC.NURSE ---
aware of creat of 8.4
[2020-05-11 12:32] LABS: C-Reactive Protein 75.8 mg/L (0-4)
[2020-05-11 13:13] LABS: Lipase 144 U/L (23-300)
[2020-05-11 13:26] LABS: Troponin I 0.16 ng/ml (0.00-0.034)
[2020-05-11 13:37] LABS: Microscopic, Urine URINE MICROSCOPIC (MICROSCOPIC)
[2020-05-11 13:50] LABS: Appearance,Urine CLEAR (Clear); Bilirubin,Urine Negative (Negative); Blood, Urine TRACE-I (Negative); Color,Urine YELLOW (Yellow); Glucose,Urine (UA) Negative (Negative); Ketones,Urine Negative (Negative); Leukocyte Esterase,Urine Negative (Negative); Nitrate,Urine Negative (Negative); Protein,Urine 2+ (Negative); Specific Gravity, Urine 1.015 (1.005-1.030); Urobilinogen,Urine 0.2 EU/dl (0.2)
--- NOTE | 2020-05-11 13:53 | PC.NURSE ---
face sheet faxed to [facility]
[2020-05-11 14:03] LABS: WBC,Urine Occasional #/hpf (0-3)
--- NOTE | 2020-05-11 14:05 | PC.NURSE ---
[facility] called Dr Benoit spoke with Dr Cordova for transfer
--- NOTE | 2020-05-11 14:34 | PC.NURSE ---
[facility] called for transport
--- NOTE | 2020-05-11 14:36 | PC.NURSE ---
GAVE REPORT TO CHRISTELLE MEJIA CHARGE NURSE AT ER AT THIS TIME
--- NOTE | 2020-05-11 14:53 | PC.NURSE ---
PATIENT LEAVING WITH EMS AT THIS TIME TO ER
== END 2020-05-11 14:54 | disposition short-term general hospital (02) ==
PROVIDERS: Emergency Provider Emergency Medicine; PCP Internal Medicine
DX: J39.2 Other diseases of pharynx (principal); R09.02 Hypoxemia; Z20.822 Contact with and (suspected) exposure to COVID-19; E11.22 Type 2 diabetes mellitus with diabetic chronic kidney disease; E11.65 Type 2 diabetes mellitus with hyperglycemia; I48.91 Unspecified atrial fibrillation; I12.0 Hypertensive chronic kidney disease with stage 5 chronic kidney disease or end stage renal disease; N18.6 End stage renal disease; Z79.84 Long term (current) use of oral hypoglycemic drugs; Z88.1 Allergy status to other antibiotic agents; Z88.5 Allergy status to narcotic agent; E78.5 Hyperlipidemia, unspecified; Z90.49 Acquired absence of other specified parts of digestive tract; Z90.710 Acquired absence of both cervix and uterus
CPT/HCPCS: 36415; 70450; 70491; 71045; 80053; 81001; 83605; 83690; 84484; 85025; 86140; 87040; 87581; 87633; 87798; 93005; 99284; Q9967